=== PATIENT | female | born 1990 | race African-American/Black ===

== ENCOUNTER 2018-11-01 08:43 | Emergency (ER) | payer MEDICAID ==
[~2018-11-01] VITALS: Ht 167.6 cm; Wt 86.0 kg
[2018-11-01 09:56] LABS: BASOPHILS % 0.7 % (0.0-2.0); EOSINOPHILS % 0.4 % (0.0-5.0); HEMATOCRIT. 37.7 % (36.0-48.0); HEMOGLOBIN. 12.3 g/dL (12.0-16.0); LYMPHOCYTES % 16.1 % (20.0-50.0); MEAN CORPUSCULAR HEMOGLOBIN 26.9 pg (28.0-32.0); MEAN CORPUSCULAR VOLUME 82.3 fL (81.0-99.0); MEAN PLATELET VOLUME 8.1 fl (7.4-10.4); MONOCYTES % 10.2 % (2.0-8.0); NEUTROPHILS % 72.6 % (40.0-76.0); PLATELET 287 x1000/uL (130-400); RED BLOOD CELL COUNT 4.58 mill/uL (4.2-5.4)
[2018-11-01 09:59] LABS: CHLORIDE 108 mEq/L (98-107)
[2018-11-01 10:00] LABS: INR 1.1; PROTHROMBIN TIME 11.3 sec (9.1-11.1)
[2018-11-01] MEDS ORDERED: IOHEXOL-350 100 ML BOTTLE ONE (11:06)
[2018-11-01] MEDS ORDERED: KETOROLAC 30MG/ML VIAL IV ONE (11:15)
[2018-11-01] MEDS ORDERED: METOCLOPRAMIDE HCL 10MG/2ML VIAL IV ONE (11:15)
[2018-11-01 13:15] VITALS: BP 126/78
== END 2018-11-01 13:29 | disposition home or self-care (01) ==
LOC: ER 08:43
DX: G43.909 Migraine, unspecified, not intractable, without status migrainosus (principal); F12.10 Cannabis abuse, uncomplicated; Z88.6 Allergy status to analgesic agent; Z98.890 Other specified postprocedural states
CPT/HCPCS: 36415; 70496; 80053; 81025; 85025; 85610; 96374; 96375; 99284; J1885; J2765; Q9967; Z7610